=== PATIENT | male | born 1995 | race Asian ===

== ENCOUNTER 2019-08-21 00:05 | Emergency (ER) | payer MEDICAID ==
[~2019-08-21] VITALS: Ht 182.9 cm; Wt 77.3 kg
[2019-08-21 00:04] VITALS: BP 139/81
== END 2019-08-21 00:30 | disposition left against medical advice (07) ==
LOC: EMS 00:05
DX: Z00.8 Encounter for other general examination (principal); Z53.21 Procedure and treatment not carried out due to patient leaving prior to being seen by health care provider